=== PATIENT | female | born 1970 | race Caucasian/White ===

== ENCOUNTER → 2017-11-09 16:07 | Outpatient (CLI) | payer BC, SELFPAY | PROVIDERS: Visit Provider Nurse Practitioner Women's Health | DX: Z12.4 Encounter for screening for malignant neoplasm of cervix (principal) ==

== ENCOUNTER → 2021-08-15 07:51 | Outpatient (CLI) | payer OTHER, SELFPAY ==
[2020-04-11 15:59] VITALS: BMI 25.4
--- NOTE | 2021-08-15 07:56 | BI_ITS ---
MAMMOGRAPHY - BILATERAL SCREENING REASON FOR EXAM: Female, 51 years old. Routine annual screening examination. PERTINENT HISTORY: Non-contributory. Bilateral breast implants. TECHNIQUE: Digital bilateral breast fermín (3D mammographic acquisition) in the CC and MLO projections. 2-D mediolateral oblique (MLO) and craniocaudad (CC) views of both breasts were obtained. CAD: Full Field Digital Mammography with Computer Added Detection was performed. COMPARISON: Comparison is made with prior abdomen examination dated 02/17/2017. FINDINGS: Breast Composition: The breasts are heterogeneously dense, which may obscure small masses. There are no dominant masses or suspicious calcifications. Bilateral breast implants are once again visualized. The right breast implant appears to have been replaced. No other significant abnormalities are identified. BI/SCRN MAMM (CAD)W/FERMÍN BILAT IMPRESSION: Stable bilateral screening mammogram. Yearly follow-up mammogram recommended. (A) ASSESSMENT CATEGORY: BIRADS Category 2: Benign. A letter regarding these results will be sent to the patient by the facility within 30 days. Approximately 10% of breast cancers are not detected by mammography. A normal mammogram should not delay biopsy of a clinically suspicious abnormality. [id number] Electronically Signed: Edinson Saldana MD at 9:05 EDT , Service support ,
[2021-08-22 17:24] LABS: HPV APTIMA, High Risk Negative (Negative)
== END ==
PROVIDERS: Nurse Practitioner Women's Health; PCP Family Medicine; Referring Provider Obstetrics & Gynecology; Visit Provider Obstetrics & Gynecology
DX: Z12.31 Encounter for screening mammogram for malignant neoplasm of breast (principal); Z12.4 Encounter for screening for malignant neoplasm of cervix
CPT/HCPCS: 77063; 77067; 87624; 88175; G0145

== ENCOUNTER 2022-01-06 09:23 | Day surgery (SDC) | payer OTHER, SELFPAY ==
[2022-01-06 09:49] VITALS: BP 115/81; PULSE 60; RESP 16; TEMP 36.6; O2SAT 100; BMI 24.5
[2022-01-06] MEDS: Lactated Ringers 1,000 ML 15 ML IV (09:53)
[2022-01-06 09:57] LABS: Internal QC Validated? YES +Cl - CLEAR BKGD; Pregnancy, Urine Negative Negative
--- NOTE | 2022-01-06 11:01 | HP.PCM_ITS ---
History and Physical Date of Admission: 01/06/22 HPI: 51-year-old with no past medical history arrives here for screening colonoscopy. She is not having any problems with her bowels. She does not have abdominal pain. She is not having any nausea. She does not have any fever or chills. She has normal bowel movements on a daily basis without the use of laxatives. She is not having bleeding per rectum. She has no family history of colon cancer. Overall she is doing very well. Past medical history: Negative except for migraines Past surgical history: Tonsillectomy, breast implants, Family history: Negative for GI malignancy or GI disease Social history: Negative alcohol or drugs Medications: As per MAR No known drug allergies Vital Signs Height 5 ft 2 in Weight: 148 lb BMI 27.1 BP 114/84 H Const Constitutional: No body ache, excessive sweating, fatigue, fever(s) or headache(s) Eyes Eyes: No change in vision, dry eyes, eye pain or Light sensitivity ENT ENT: No abnormal hearing, tinnitus, dizziness/vertigo, headache(s), dry mouth, lip swelling, neck pain or sore throat Resp Respiratory: No cough, excessive phlegm production, shortness of breath or pain with cough Cardio Cardiology: No chest pain at rest, leg pain with exertion, excessive sweating, generalized swelling or irregular heart rhythm Gastro GI: No abdominal pain, change in bowel habits, constipation, cramping or diarrhea Musc Musculoskeletal: No back pain, deformity, loss of height, muscle cramps, neck pain or leg pain with exertion Skin Skin: No itchy eyes Breast Breast: No change in breast shape, breast lump, breast pain or breast skin changes Neuro Neurology: No abnormal hearing, confusion, unsteady gait/balance, headache(s) or loss of vision Psych Psychiatric: No confusion Endo Endocrine: No cold intolerance, excessive sweating, fatigue, increased thirst/drinking or increased hunger Aller/Imm Allergy/Immunologic: No food intolerance, itchy eyes, lip swelling, seasonal allergy symptoms or hives Dale/Lymp Hematologic/Lymphatic: No easy bleeding, easy bruising or enlarged lymph nodes Exam Const General: cooperative, comfortable and no acute distress Orientation: alert, awake and oriented x3 HENMT Head: normal to inspection, normocephalic and atraumatic Ears: hearing grossly normal bilaterally Neck Neck: normal visual inspection, full ROM, no lymphadenopathy and supple Neck mass: No Thyroid: thyroid normal Resp Effort & Inspection: normal respiratory effort and able to speak in complete sentences Auscultation: Bilateral: Clear to Auscultation Cardio Rate: regular rate Rhythm: regular rhythm Heart Sounds: S1 normal and S2 normal GI Palpation: soft (Nontender, no palpable organomegaly) Neuro General: patient alert, patient awake, patient oriented x3, moves all extremities and CN's II-XI intact bilaterally Extrem General: no clubbing, cyanosis or edema Psych Appearance: grossly normal Mental Status: mental status grossly normal Mood: congruent mood Affect: normal affect Assessment and Plan Colon cancer screening: She will undergo screening colonoscopy. She was explained alternatives, r isk, benefits including not withstanding bleeding, infection, sepsis, perforation, need for emergent surgery . She will have an ASA of 1.
[2022-01-06 11:45] VITALS: BP 115/81; BP 92/51; PULSE 63; RESP 16; TEMP 37.5; O2SAT 99
--- NOTE | 2022-01-06 11:47 | OP.CCLET_ITS ---
07/09/2022 Brian Chavez Re : Colonoscopy procedure for Génesis Cardenas Dear Scott This procedure was performed on Thursday, January 06, 2022. My impressions and recommendations are as follows: Impressions : - Redundant colon. - The examination was otherwise normal on direct and retroflexion views. - No specimens collected. Recommendations : - Discharge patient to home. - Resume previous diet. - Continue present medications. - Repeat colonoscopy in 10 years for screening purposes. My findings are described in the full procedure note, which is enclosed. If I can be of further assistance, please feel free to contact me at . Sincerely, Tristan Etienne, 01/06/2022 11:46:06 AM This report has been signed electronically.
--- NOTE | 2022-01-06 11:47 | OP.COLON_ITS ---
Patient Name: Génesis Cardenas Procedure Date: 01/06/2022 11:08 AM Date of : 1970 Age: 51 Procedure: Colonoscopy Indications: Screening for colorectal malignant neoplasm Providers: Tristan Etienne DO Patient Profile: This is a 51 year old female. Refer to note in patient chart for documentation of history and physical. Last Colonoscopy: none. The patient's first colonoscopy is today. Complications: No immediate complications. Procedure: Pre-Anesthesia Assessment: - Prior to the procedure, a History and Physical was performed, and patient medications and allergies were reviewed. The patient is competent. The risks and benefits of the procedure and the sedation options and risks were discussed with the patient. All questions were answered and informed consent was obtained. Patient identification and proposed procedure were verified by the physician in the pre-procedure area. Mental Status Examination: alert and oriented. Airway Examination: normal oropharyngeal airway and neck mobility. Respiratory Examination: clear to auscultation. CV Examination: normal. Prophylactic Antibiotics: The patient does not require prophylactic antibiotics. Prior Anticoagulants: The patient has taken no previous anticoagulant or antiplatelet agents. After reviewing the risks and benefits, the patient was deemed in satisfactory condition to undergo the procedure. The anesthesia plan was to use moderate sedation / analgesia (conscious sedation). Immediately prior to administration of medications, the patient was re-assessed for adequacy to receive sedatives. The heart rate, respiratory rate, oxygen saturations, blood pressure, adequacy of pulmonary ventilation, and response to care were monitored throughout the procedure. The physical status of the patient was re-assessed after the procedure. After I obtained informed consent, the scope was passed under direct vision. Throughout the procedure, the patient's blood pressure, pulse, and oxygen saturations were monitored continuously. The adult colonoscope was introduced through the anus and advanced to the cecum, identified by the appendiceal orifice, ileocecal valve and palpation. The colonoscopy was performed without difficulty. The patient tolerated the procedure well. The quality of the bowel preparation was good. Moderate Sedation: Moderate (conscious) sedation was administered by the endoscopy nurse and supervised by the endoscopist. The patient's oxygen saturation, heart rate, blood pressure and response to care were monitored. Total physician intraservice time was 15 minutes. Scope In: 11:15:45 AM Scope Withdrawal Time 0 hours 13 minutes 29 seconds Scope Out: 11:39:24 AM Total Procedure Duration Time 0 hours 23 minutes 39 seconds Findings: The perianal and digital rectal examinations were normal. The sigmoid colon, splenic flexure and hepatic flexure were moderately redundant. The exam was otherwise without abnormality on direct and retroflexion views. Impression: - Redundant colon. - The examination was otherwise normal on direct and retroflexion views. - No specimens collected. Recommendation: - Discharge patient to home. - Resume previous diet. - Continue present medications. - Repeat colonoscopy in 10 years for screening purposes. Procedure Code(s): --- Professional --- G0121, Colorectal cancer screening; colonoscopy on individual not meeting criteria for high risk 31300, 59, Moderate sedation services provided by the same physician or other qualified health insurance healthcare consultant performing the diagnostic or therapeutic service that the sedation supports, requiring the presence of an independent trained observer to assist in the monitoring of the patient's level of consciousness and physiological status; initial 15 minutes of intraservice time, patient age 5 years or older CPT copyright 2017 [employer]. All rights reserved. The codes documented in this report are preliminary and upon follow up rep review may be revised to meet current compliance requirements. Tristan Etienne DO 01/06/2022 11:46:06 AM This report has been signed electronically. Number of Addenda: 1 Note Initiated On: 01/06/2022 11:08 AM Addendum Number: 1 Addendum Date: 07/09/2022 6:18:47 AM MAC was used as sedation for this procedure. Tristan Etienne DO 07/09/2022 6:18:53 AM This report has been signed electronically.
[2022-01-06 11:50] VITALS: BP 115/81; BP 83/63; PULSE 57; RESP 16; O2SAT 99
[2022-01-06 11:55] VITALS: BP 101/52; BP 115/81; PULSE 57; RESP 16; O2SAT 100
[2022-01-06 12:00] VITALS: BP 105/63; BP 115/81; PULSE 58; RESP 16; TEMP 36.6; O2SAT 100
[2022-01-06 12:24] VITALS: BP 115/81
== END 2022-01-06 23:59 | disposition home or self-care (01) ==
LOC: EN 09:27 → AC 09:27
PROVIDERS: Anesthesiology; PCP Family Medicine; Referring Provider Family Medicine; Visit Provider Internal Medicine Gastroenterology
PROC: 0DJD8ZZ Inspection of Lower Intestinal Tract, Via Natural or Artificial Opening Endoscopic (ICD-10-PCS; CPT 45378; principal; 2022-01-06 10:10)
DX: Z12.11 Encounter for screening for malignant neoplasm of colon (principal); Q43.8 Other specified congenital malformations of intestine; G43.909 Migraine, unspecified, not intractable, without status migrainosus; Z79.899 Other long term (current) drug therapy
CPT/HCPCS: 45378; 81025; J7120

== ENCOUNTER → 2022-08-29 | Outpatient (CLI) | payer OTHER, SELFPAY ==
--- NOTE | 2022-08-29 13:00 | BI_ITS ---
MAMMOGRAPHY - BILATERAL SCREENING REASON FOR EXAM: Female, 52 years old. Routine annual screening examination. PERTINENT HISTORY: Non-contributory. History of bilateral breast implants. TECHNIQUE: Digital bilateral breast fermín (3D mammographic acquisition) in the CC and MLO projections. 2-D mediolateral oblique (MLO) and craniocaudad (CC) views of both breasts were obtained. CAD: Full Field Digital Mammography with Computer Added Detection was performed. COMPARISON: Comparison is made with prior study 08/15/2021. FINDINGS: Breast Composition: The breasts are heterogeneously dense, which may obscure small masses. There are no dominant masses or suspicious calcifications. Stable appearance of the bilateral breast implants. No other significant abnormalities are identified. There has been no significant change since the prior study. BI/SCRN MAMM (CAD)W/FERMÍN BILAT IMPRESSION: Stable bilateral screening mammogram. Yearly follow-up mammogram recommended. (A) ASSESSMENT CATEGORY: BIRADS Category 2: Benign. A letter regarding these results will be sent to the patient by the facility within 30 days. Approximately 10% of breast cancers are not detected by mammography. A normal mammogram should not delay biopsy of a clinically suspicious abnormality. [id number] Electronically Signed: Edinson Saldana MD at 13:44 EST ,
== END | disposition home or self-care (01) ==
LOC: OPBI 12:59
PROVIDERS: PCP Family Medicine; Referring Provider Nurse Practitioner Women's Health; Visit Provider Nurse Practitioner Women's Health
DX: Z12.31 Encounter for screening mammogram for malignant neoplasm of breast (principal); Z98.82 Breast implant status
CPT/HCPCS: 77063; 77067

== ENCOUNTER → 2022-11-26 | Outpatient (CLI) | payer OTHER, SELFPAY ==
--- NOTE | 2022-11-26 13:15 | RAD_ITS ---
HISTORY: PAIN. TECHNIQUE: XR Spine Lumbar Min 4 Views. COMPARISON: None. FINDINGS: VERTEBRAE: Vertebral body heights preserved. Posterior elements appear intact. ALIGNMENT: No significant anterior or posterior subluxation. Very mild thoracolumbar dextrocurvature and exaggeration of the lumbar lordosis. INTERVERTEBRAL DISCS: Very mild intervertebral disc space narrowing of L5-S1. RAD/L/S Spine Min 4 Views IMPRESSION: No acute fracture or dislocation identified in the lumbar spine. Very mild degenerative change. Electronically Signed: Sobia Maki MD at 9:46 EST ,
== END | disposition home or self-care (01) ==
PROVIDERS: PCP Family Medicine; Visit Provider Family Medicine
DX: M54.50 Low back pain, unspecified (principal)
CPT/HCPCS: 72110

== ENCOUNTER → 2022-12-08 | Outpatient (CLI) | payer OTHER, SELFPAY ==
--- NOTE | 2022-12-08 10:50 | US_ITS ---
STUDY: ULTRASOUND BREAST - RIGHT REASON FOR EXAM: Female, 52 years old. Palpable lump in the right axillary region. TECHNIQUE: Axial and longitudinal images of the RIGHT breast were performed with a high resolution ultrasound transducer. # OF IMAGES: 21 COMPARISON: Comparison is made with prior mammogram dated 08/29/2022. FINDINGS: RIGHT Breast: There is a 6 mm x 5 mm x 2 mm benign-appearing lymph node in the right axilla. US/Breast Limited Unilateral IMPRESSION: 6 mm x 5 mm x 2 mm benign-appearing lymph node in the right axilla. ASSESSMENT CATEGORY: BIRADS Category 2: Benign. A letter regarding these results will be sent to the patient by the facility within 30 days. Electronically Signed: Edinson Saldana MD at 15:31 EST ,
[2022-12-16 15:12] LABS: HPV APTIMA, High Risk Negative (Negative)
== END | disposition home or self-care (01) ==
PROVIDERS: PCP Family Medicine; Visit Provider Nurse Practitioner Women's Health
DX: R22.31 Localized swelling, mass and lump, right upper limb (principal); Z12.4 Encounter for screening for malignant neoplasm of cervix
CPT/HCPCS: 76642; 87624; 88175; G0145

== ENCOUNTER → 2023-10-07 | Outpatient (CLI) | payer OTHER, SELFPAY ==
--- NOTE | 2023-10-07 08:23 | BI_ITS ---
MAMMOGRAPHY - BILATERAL SCREENING 3-D TOMOSYNTHESIS REASON FOR EXAM: Female, 53 years old. Routine annual screening mammogram. PERTINENT HISTORY: History of implant placement. TECHNIQUE: 2-D mammograms and 3-D Tomosynthesis of the breast (s) were performed. CAD was performed. Bilateral implant displacement views were also obtained. COMPARISON: August 29, 2022, August 15, 2021 FINDINGS: Stable heterogeneously dense fibroglandular tissue which may obscure small masses. Bilateral subpectoral implants unchanged in position without complications. Stable lymph nodes. No dominant masses, suspicious microcalcifications, asymmetries, skin thickening or nipple retraction. BI/SCRN MAMM (CAD)W/FERMÍN BILAT IMPRESSION: No interval change and no mammographic signs of malignancy. Routine yearly mammogram recommended. ASSESSMENT CATEGORY: BIRADS Category 2: Benign. A letter regarding these results will be sent to the patient by the facility within 30 days. FOLLOW UP RECOMMENDATION: Yearly follow up mammogram recommended. (A) Approximately 10% of breast cancers are not detected by mammography. A normal mammogram should not delay biopsy of a clinically suspicious abnormality. Electronically Signed: Rory Leger MD at 13:39 EST ,
== END | disposition home or self-care (01) ==
LOC: OPBI 08:23
PROVIDERS: PCP Family Medicine; Referring Provider Obstetrics & Gynecology; Visit Provider Obstetrics & Gynecology
DX: Z12.31 Encounter for screening mammogram for malignant neoplasm of breast (principal)
CPT/HCPCS: 77063; 77067

== ENCOUNTER → 2024-10-10 | Outpatient (CLI) | payer OTHER, SELFPAY ==
--- NOTE | 2024-10-10 12:29 | BI_ITS ---
MAMMOGRAPHY - BILATERAL SCREENING 3-D TOMOSYNTHESIS REASON FOR EXAM: Female, 54 years old. screening mammogram PERTINENT HISTORY: No significant family history. TECHNIQUE: 2-D mammograms and 3-D Tomosynthesis of the breast (s) were performed. CAD was performed. COMPARISON: 10/07/2023 FINDINGS: The breast composition is heterogeneously dense that can obscure small breast masses. Scattered benign calcifications are seen. No dense spiculated masses or suspicious microcalcifications are identified. No architectural distortion is identified. There is no skin thickening or retraction. There has been no significant change since the prior study. Bilateral retroglandular of silicone implants appear intact. BI/SCRN MAMM (CAD)W/FERMÍN BILAT IMPRESSION: No mammographic signs of malignancy. Routine yearly mammograms recommended. ASSESSMENT CATEGORY: BIRADS Category 1: Negative. A letter regarding these results will be sent to the patient by the facility within 30 days. FOLLOW UP RECOMMENDATION: Yearly follow up mammogram recommended. (A) Approximately 10% of breast cancers are not detected by mammography. A normal mammogram should not delay biopsy of a clinically suspicious abnormality. Electronically Signed: Ramiro Freitas MD at 20:46 EST ,
== END | disposition home or self-care (01) ==
LOC: OPBI 12:29
PROVIDERS: PCP Family Medicine; Referring Provider Nurse Practitioner Women's Health; Visit Provider Nurse Practitioner Women's Health
DX: Z12.31 Encounter for screening mammogram for malignant neoplasm of breast (principal)
CPT/HCPCS: 77063; 77067

== ENCOUNTER → 2025-10-11 | Outpatient (CLI) | payer OTHER, SELFPAY ==
--- NOTE | 2025-10-11 08:30 | BI_ITS ---
EXAM: SCRN MAMM (CAD)W/FERMÍN BILAT DATE: 10/11/2025 CLINICAL HISTORY: F, Age 55 y/o , SCREENING FOR BREAST CANCER TECHNIQUE: Procedure Code: [id number] Modality: MG Procedure: SCRN MAMM (CAD)W/FERMÍN BILAT COMPARISON: Prior exam(s) were compared FINDINGS: TISSUE DENSITY: The breasts are heterogeneously dense, which may obscure small masses. Bilateral Breast Mammographic Findings: No significant masses, calcifications or other abnormalities are identified. Bilateral breast implants are present. BI/SCRN MAMM (CAD)W/FERMÍN BILAT IMPRESSION: No mammographic evidence of malignancy. OVERALL FINAL ASSESSMENT BI-RADS 2: BENIGN RECOMMENDATION: Routine annual follow-up in 1 Year Additional Recommendation none A letter with findings and recommendations will be mailed to the patient. Reading Location: [id number]
== END | disposition home or self-care (01) ==
PROVIDERS: PCP Family Medicine; Referring Provider Nurse Practitioner Women's Health; Visit Provider Nurse Practitioner Women's Health
DX: Z12.31 Encounter for screening mammogram for malignant neoplasm of breast (principal)
CPT/HCPCS: 77063; 77067